=== PATIENT | male | born 2000 | race Caucasian/White ===

== ENCOUNTER → 2021-12-31 | Outpatient (REF) | LOC: M EMP 13:53 | PROVIDERS: ATTEND Family Medicine | DX: Z20.822 Contact with and (suspected) exposure to COVID-19 (principal) ==

== ENCOUNTER → 2022-01-14 | Outpatient (REF) | LOC: M EMP 11:45 | PROVIDERS: ATTEND Family Medicine | DX: Z20.822 Contact with and (suspected) exposure to COVID-19 (principal) ==

== ENCOUNTER 2022-02-21 10:37 | Emergency (ER) | payer OTHER ==
[~2022-02-21] VITALS: Ht 177.8 cm; Wt 72.7 kg
[2022-02-21 12:08] LABS: BASO % 0.4 % (0.0-1.0); EOS # 0.1 10^3/uL (0.0-0.5); EOS % 1.5 % (0.0-3.0); HEMATOCRIT 46.7 % (42.0-52.0); HEMOGLOBIN 15.7 g/dl (13.5-17.5); LYMPH # 1.1 10^3/uL (1.5-5.0); LYMPH % 14.3 % (24.0-44.0); MEAN CORPUSCULAR HEMOGLOBIN 28.6 pg (27.0-33.0); MEAN CORPUSCULAR HGB CONC 33.6 g/dl (32.0-36.5); MEAN CORPUSCULAR VOLUME 85.1 fl (80.0-96.0); MONO # 0.5 10^3/uL (0.0-0.8); MONO % 6.7 % (2.0-8.0); NEUTROPHILS # 5.7 10^3/uL (1.5-8.5); NEUTROPHILS % 76.8 % (36.0-66.0); PLATELET COUNT, AUTOMATED 189 10^3/uL (150-450); RED BLOOD COUNT 5.49 10^6/uL (4.30-6.10); WHITE BLOOD COUNT 7.4 10^3/uL (4.0-10.0)
[2022-02-21 13:10] LABS: BLOOD UREA NITROGEN 14 MG/DL (9-23); CALCIUM LEVEL 9.1 MG/DL (8.5-10.1); CARBON DIOXIDE LEVEL 27 MMOL/L (20-31); CHLORIDE LEVEL 104 MMOL/L (98-107); CREATININE FOR GFR 0.85 MG/DL (0.70-1.30); GLOMERULAR FILTRATION RATE > 60.0 (>60); GLUCOSE, FASTING 86 MG/DL (60-100); SODIUM LEVEL 141 MMOL/L (136-145)
[2022-02-21 13:15] VITALS: BP 121/58
[2022-02-21] MEDS ORDERED: NAPR-837 PO (13:34)
== END 2022-02-21 13:41 | disposition home or self-care (01) ==
LOC: M ED 10:37
DX: R07.9 Chest pain, unspecified (principal); S86.911A Strain of unspecified muscle(s) and tendon(s) at lower leg level, right leg, initial encounter; Z79.899 Other long term (current) drug therapy

== ENCOUNTER 2022-03-07 08:23 | Emergency (ER) | payer OTHER ==
[~2022-03-07] VITALS: Ht 177.8 cm; Wt 69.6 kg
[~2022-03-07 08:23] MED LIST: NAPR-837 PO
[2022-03-07] MEDS ORDERED: NS 1,000 ML IV ONE (08:55)
[2022-03-07] MEDS ORDERED: ACETAMINOPHEN 500 MG TAB PO ONE (08:55)
[2022-03-07 09:32] LABS: BASO % 0.2 % (0.0-1.0); EOS # 0.1 10^3/uL (0.0-0.5); EOS % 0.6 % (0.0-3.0); HEMATOCRIT 45.9 % (42.0-52.0); HEMOGLOBIN 15.3 g/dl (13.5-17.5); LYMPH # 0.9 10^3/uL (1.5-5.0); LYMPH % 8.5 % (24.0-44.0); MEAN CORPUSCULAR HEMOGLOBIN 28.3 pg (27.0-33.0); MEAN CORPUSCULAR HGB CONC 33.3 g/dl (32.0-36.5); MONO # 0.7 10^3/uL (0.0-0.8); MONO % 6.6 % (2.0-8.0); NEUTROPHILS # 9.2 10^3/uL (1.5-8.5); NEUTROPHILS % 83.6 % (36.0-66.0); PLATELET COUNT, AUTOMATED 288 10^3/uL (150-450)
[2022-03-07 10:07] LABS: BLOOD UREA NITROGEN 12 MG/DL (9-23); CALCIUM LEVEL 8.8 MG/DL (8.5-10.1); CARBON DIOXIDE LEVEL 24 MMOL/L (20-31); CHLORIDE LEVEL 103 MMOL/L (98-107); CREATININE FOR GFR 0.91 MG/DL (0.70-1.30); GLOMERULAR FILTRATION RATE > 60.0 (>60); GLUCOSE, FASTING 97 MG/DL (60-100); POTASSIUM SERUM 4.3 MMOL/L (3.5-5.1); SODIUM LEVEL 140 MMOL/L (136-145)
[2022-03-07 10:45] VITALS: BP 112/52
== END 2022-03-07 10:50 | disposition home or self-care (01) ==
LOC: M ED 08:23
DX: R05.9 Cough, unspecified (principal); R42 Dizziness and giddiness; J45.909 Unspecified asthma, uncomplicated

== ENCOUNTER 2022-05-02 12:01 | Emergency (ER) | payer OTHER ==
[~2022-05-02] VITALS: Ht 177.8 cm; Wt 69.0 kg
[2022-05-02 15:08] LABS: BASO % 0.4 % (0.0-1.0); EOS # 0.2 10^3/uL (0.0-0.5); EOS % 1.5 % (0.0-3.0); HEMATOCRIT 45.1 % (42.0-52.0); HEMOGLOBIN 14.9 g/dl (13.5-17.5); LYMPH # 1.5 10^3/uL (1.5-5.0); LYMPH % 14.4 % (24.0-44.0); MEAN CORPUSCULAR HEMOGLOBIN 28.2 pg (27.0-33.0); MEAN CORPUSCULAR VOLUME 85.4 fl (80.0-96.0); MONO # 1.1 10^3/uL (0.0-0.8); MONO % 10.8 % (2.0-8.0); NEUTROPHILS # 7.5 10^3/uL (1.5-8.5); NEUTROPHILS % 72.7 % (36.0-66.0); PLATELET COUNT, AUTOMATED 201 10^3/uL (150-450); RED BLOOD COUNT 5.28 10^6/uL (4.30-6.10); WHITE BLOOD COUNT 10.3 10^3/uL (4.0-10.0)
[2022-05-02 15:34] LABS: BLOOD UREA NITROGEN 15 MG/DL (9-23); CALCIUM LEVEL 9.6 MG/DL (8.5-10.1); CARBON DIOXIDE LEVEL 31 MMOL/L (20-31); CHLORIDE LEVEL 104 MMOL/L (98-107); CREATININE FOR GFR 0.98 MG/DL (0.70-1.30); GLOMERULAR FILTRATION RATE > 60.0 (>60); GLUCOSE, FASTING 101 MG/DL (60-100); POTASSIUM SERUM 4.3 MMOL/L (3.5-5.1); SODIUM LEVEL 139 MMOL/L (136-145)
[2022-05-02 15:37] LABS: MONO REFLEX EBV COMP NEGATIVE (NEGATIVE)
[2022-05-02 17:28] LABS: CK-MB VALUE MASS < 1.0 NG/ML (<3.6)
[2022-05-02 17:30] LABS: CPK CREATINE PHOSPHOKINASE 100 U/L (46-171)
[2022-05-02 18:32] VITALS: BP 119/64
[2022-05-02] MEDS ORDERED: BENZ1LOZ9 PO (18:33)
[2022-05-05 15:08] LABS: EBV VIRAL CAPSID AG IgG <18.0 U/mL (0.0-17.9); EBV VIRAL CAPSID AG IgM <36.0 U/mL (0.0-35.9)
== END 2022-05-02 18:53 | disposition home or self-care (01) ==
LOC: M ED 12:01
DX: J02.9 Acute pharyngitis, unspecified (principal); J06.9 Acute upper respiratory infection, unspecified; Z87.09 Personal history of other diseases of the respiratory system; Z79.899 Other long term (current) drug therapy

== ENCOUNTER 2022-05-20 20:42 | Emergency (ER) | payer OTHER ==
[~2022-05-20] VITALS: Ht 177.8 cm; Wt 72.7 kg
[~2022-05-20 20:42] MED LIST changes: +BENZ1LOZ9 PO
[2022-05-21] MEDS ORDERED: KETOROLAC 60MG 2ML VIAL IM ONE (04:00)
[2022-05-21 04:35] VITALS: BP 124/76
[2022-05-21] MEDS ORDERED: NAPR-849 PO (05:00)
== END 2022-05-21 05:28 | disposition home or self-care (01) ==
LOC: M ED 20:42
DX: S39.012A Strain of muscle, fascia and tendon of lower back, initial encounter (principal); J45.909 Unspecified asthma, uncomplicated; Z79.1 Long term (current) use of non-steroidal anti-inflammatories (NSAID); Z79.899 Other long term (current) drug therapy
CPT/HCPCS: 72110; 96372; 99283; J1885

== ENCOUNTER 2023-09-30 02:41 | Emergency (ER) | payer OTHER ==
[~2023-09-30] VITALS: Ht 177.8 cm; Wt 75.8 kg
[2023-09-30 02:41] VITALS: BP 139/74; TEMP 100.9; O2SAT 97
[~2023-09-30 02:41] MED LIST changes: +NAPR-849 PO
[2023-09-30] MEDS: ACETAMINOPHEN TAB 650MG DOSE (2X325MG) PO ONE (06:17)
== END 2023-09-30 06:19 | disposition home or self-care (01) ==
LOC: M ED 02:41
DX: J06.9 Acute upper respiratory infection, unspecified (principal); B34.2 Coronavirus infection, unspecified; J45.909 Unspecified asthma, uncomplicated; Z79.1 Long term (current) use of non-steroidal anti-inflammatories (NSAID); Z79.899 Other long term (current) drug therapy

== ENCOUNTER → 2024-01-12 | Outpatient (REF) | payer OTHER | LOC: M LAB REF 16:19 | PROVIDERS: ATTEND Physician Assistant | DX: B34.9 Viral infection, unspecified (principal) ==

== ENCOUNTER → 2024-01-12 | Outpatient (REF) | LOC: M EMP 11:41 | PROVIDERS: ATTEND Family Medicine | DX: Z20.822 Contact with and (suspected) exposure to COVID-19 (principal) ==